=== PATIENT | female | born 1940 | race Asian ===

== ENCOUNTER 2023-09-13 12:03 | Emergency (ER) | payer MEDICARE, SELFPAY ==
[2023-09-13 12:16] VITALS: BP 169/100
[2023-09-13 12:21] VITALS: BMI 34.9
--- NOTE | 2023-09-13 14:31 | ED.GENMED ---
History of Present Illness
General
Chief Complaint: Fall
Source: patient
Exam Limitations: none
Time Seen by Provider: 09/13/23 12:34
Nursing documentation reviewed up to this point in time: agreed with
Travel History
Have you had any contact with someone who has COVID-19?: No
Do you have any symptoms of coronavirus? Fever > 100 degrees, chills, cough, shortness of breath, sore throat, loss of taste or smell, muscle aches, or headache?: No
History of Present Illness
History of Present Illness:
PT IS A 83 Y/O F
h/o afib on eliquis
fall from standing when she tripped over a floor board that was sticking up at home from the floor
she landed onto left shoulder and hit left face
has pain in the left shoulder and is unable to move it. also some mild left cheek/facial bruising
no dizziness/presyncope, snigifincant headache
has some mild left neck pain, left upper arm and left forearm pain
no hip/pelvis pain, cp, sob.
Past History
Past History
ED Past Medical History: Arrthythmia, HTN and Hypercholesterolemia
Social History
Tobacco: Non-smoker
Alcohol: None
Drug: None
Personal: Single
Living: alone
Review of Systems
Review of Systems
Allergies reviewed?: Yes
All Other Systems: Not applicable
Phy Exam
Physical Exam
Physical Exam:
GENERAL: Alert , in pain L shoulder
head: ncat
face: left maxillary/zygoma region ecchymosis and STS
EYE: pupils equal and reactive
NECK: Supple, mild left trap tenderness, painful lateral rotation
ENT: b/l TM s clear
CARDIAC: Regular rate and rhythm, no edema
LUNGS: Clear breath sounds bilaterally, no acute respiratory distress, no wheezes/rales/rhonchi, occ cough
ABDOMEN: Soft, without focal tenderness, no r/g, no cvat, normal bowel sounds
hips notnender
back nontender midline
NEUROLOGICAL: Alert and oriented, no focal neuro deficits, cn intact, strength intact, sensation intact
SKIN: Warm and dry, skin intact. ecchymosis left cheek
MUSCULOSKELETAL: left shoulder tender
very limited ROM
tender humerus, forearm but no signs of trauma
wrist/hand normal
PSYCH: Normal and appropriate interaction.
Course
Orders/Labs/Results
Orders:
Orders
09/13/23 13:16
CT Cervical Spine W/o Iv Contr Urgent
Comment:
Reason For Exam: fall, hit head, left neck kpain
CT Facial Bones W/o Iv Contras Urgent
Comment:
Reason For Exam: fall hit left face
CT Head W/o Iv Contrast Urgent
Comment:
Reason For Exam: fall on thinners
Hydrocodone 5/APAP 325 [[place] 5/325] 1 tablet PO NOW STA
Ondansetron Orally Disint [Zofran Odt (Orally Disintegrating)] 4 mg PO NOW STA
CR Shoulder, Trauma - Left Urgent
Comment:
Reason For Exam: left shoulder injury from fall
Forearm, Left 2 View [CR Forearm - Left 2 View] Urgent
Comment:
Reason For Exam: left arm pain
Humerus, Left 2 Views [CR Humerus - Left Min 2 Views*] Urgent
Comment:
Reason For Exam: left arm pain after fall
09/13/23 15:17
Case Management Consult ONCE
Case Management Consult: VN/Home Care
Vital Signs
Initial and Last Documented VS:
Initial Vital Signs
Temp Pulse Resp BP Pulse Ox
97.4 F 62 20 169/100 98
09/13/23 12:16 09/13/23 12:16 09/13/23 12:16 09/13/23 12:16 09/13/23 12:16
Last Documented Vital Signs
Temp Pulse Resp BP Pulse Ox
97.4 F 78 16 141/90 95
09/13/23 12:16 09/13/23 16:23 09/13/23 16:23 09/13/23 16:23 09/13/23 16:23
MDM/Problems Addressed
Differential Diagnosis Includes:
shoulder fracture, dislocation, head injury
MDM/Problems Addressed:
pt is a 83 y/o F with h/o right hand domiannce
here with L shoulder pain after mechanical fall onto left shoulder
unable to range it
also struck face
is on eliquis
mentating normally
mild facial bruising
L shoulder limited ROM suspect that she has a fracture
nv intact
no other signifiant injuries
due to age and mechanism, ct face and c s pine recommended
CTs neg for fractures
xray reviewed by me
left humeral head fracture, appeared subluxed but reviewed with radiologist read and no dislocation/malalignment
i also spoke with ortho attending dr monsalve who agreed
he recommended sling and outpatient f/u
pt was given dose of vicodin as she was in a lot of pain
she seemed to tolerate well
daughter says she will take her mom home to stay with her so she will do tylenol 2 times a day and 1 dose vicodin before bed
she is aware this can make her drowsy.
humerus and forearm no fractures indep reviewed xrays.
*Critical Care Note
Total Time (30-74mins, 75-104mins- exclusive of procedures): Not Applicable
ED Attending Note
-
Portions of this chart may have been created with voice recognition software.� Occasional wrong word or��sound alike� substitutions may have occurred due to the inherent limitations of voice recognition software.
Discharge Plan
Departure
Patient Disposition: Home (Routine Discharge)
Date of Disposition: 09/13/23
Time of Disposition: 15:57
Patient with high blood pressure during this ER visit?: No
Covid-19: Not Applicable
Discharge Problem:
Closed fracture of shoulder, Fall, Contusion of face
Instructions: Contusion (DC), Shoulder Fracture (DC), BLOOD PRESSURE
Prescriptions:
New
hydrocodone-acetaminophen 5-325 mg tablet
1 tab PO BID PRN (Reason: Pain) Qty: 9 0RF
Referrals:
Coy Monsalve MD [Active] - Follow up in 5-7 days (call for an appointment)
UNKNOWN - PT DOES,NOT KNOW [Family Provider] -
Activity Restrictions/Additional Instructions:
YOU HAVE A BROKEN SHOULDER
WEAR THE SLING
YOU SHOULD SEE AN ORTHOPEDIST BY NEXT WEEK
CALL FOR AN APPOINTMENT. YOU CAN FOLLOW UP HERE WITH [facility] OR CALL ANOTHER ORTHOPEDIC PRACTICE [facility]
ICE OFF AND ON
TYLENOL 2 TIMES A DAY 650 MG (morning and afternoon)
IF YOUR PAIN IS SEVERE YOU CAN TRY A HYDROCODONE/TYLENOL TAB NEEDED EVERY 12 HOURS ([facility]
THIS MAY MAKE YOU SLEPEY OR DIZZY
BE CAREFUL BECAUSE OF YOUR BLOOD THINNERS, IF IT MAKES YOU TOO DIZZY THEN DO NOT TAKE IT
YOU HAD NO SIGNS OF HEAD/FACE/SPINE INJURY FROM THE FALL BUT SOME BRUISING TO YOUR FACE WHICH SHOULD HEAL
RETURN FOR ANY SEVERE PAIN, OR ANY CONCERNS.
Interventions
Interventions:
*Risk Screen - Suicide Last Done: 09/13/23 12:11
*General Assessment Last Done: 09/13/23 14:42
*Neglect/Abuse Screening Last Done: 09/13/23 12:11
ED- Fall Risk Assessment Last Done: 09/13/23 12:12
*ED COVID-19 Vaccine History Last Done: 09/13/23 16:31
*Nursing Disposition Last Done: 09/13/23 16:31
ED-Musculoskeletal Assessment Last Done: 09/13/23 14:40
ED- Neurological Assessment Last Done: 09/13/23 15:05
ED-Skin Assessment Last Done: 09/13/23 14:42
Discharge Date and Time
Discharge Date/Time: 09/13/23 16:35
[2023-09-13] MEDS: ZOFRAN ODT (ORALLY DISINTEGRATING) 4 MG PO (14:36)
[2023-09-13] MEDS: NORCO 5/325 1 TABLET PO (14:37)
--- NOTE | 2023-09-13 15:41 | CM ---
Addendum entered by Carmina Villalobos RN 09/13/23 16:02:
[facility] has accepted.
Original Note:
Cm met with patient and daughter in room. Patient lives alone. Daughter is available for cooking and minor housekeeping. Patient is agreeable to stay with daughter with [facility]. CM gave patient's daughter number for TO Dias[facility] rn liaison at
[facility] to arrangement for private pay care.
TAMARA sent referral via [facility] to [facility].
CM updated ED PA.
[2023-09-13 16:23] VITALS: BP 141/90
== END 2023-09-13 16:35 | disposition home or self-care (01) ==
LOC: EMR 12:03
PROVIDERS: EMERGENCY PHYSICIAN Emergency Medicine
DX: S42.92XA Fracture of left shoulder girdle, part unspecified, initial encounter for closed fracture (principal); S00.83XA Contusion of other part of head, initial encounter; M79.632 Pain in left forearm; M54.2 Cervicalgia; M79.622 Pain in left upper arm; W18.09XA Striking against other object with subsequent fall, initial encounter; Y92.009 Unspecified place in unspecified non-institutional (private) residence as the place of occurrence of the external cause; I10 Essential (primary) hypertension; E78.00 Pure hypercholesterolemia, unspecified; I48.91 Unspecified atrial fibrillation; Z79.01 Long term (current) use of anticoagulants; Z88.6 Allergy status to analgesic agent
CPT/HCPCS: 99284; 70450; 70486; 72125; 73030; 73060; 73090

== ENCOUNTER → 2024-08-30 12:52 | Outpatient (REF) | payer MEDICARE, SELFPAY | LOC: HWRAD 12:52 | PROVIDERS: ATTENDING PHYSICIAN Nurse Practitioner | DX: R05.3 Chronic cough (principal) | CPT/HCPCS: 71046 ==

== ENCOUNTER 2025-02-18 14:25 | Outpatient (RCR) | payer MEDICARE, SELFPAY | END 2025-02-18 23:59 | disposition home or self-care (01) | LOC: RPT 14:25 | PROVIDERS: ATTENDING PHYSICIAN Anesthesiology; FAMILY PHYSICIAN Family Medicine | DX: M54.51 Vertebrogenic low back pain (principal); Z73.6 Limitation of activities due to disability; M79.605 Pain in left leg; M79.604 Pain in right leg; M62.81 Muscle weakness (generalized) | CPT/HCPCS: 97010; 97112; 97116; 97162 ==

== ENCOUNTER 2025-03-18 19:01 | Outpatient (RCR) | payer MEDICARE, SELFPAY | END 2025-03-18 23:59 | disposition home or self-care (01) | LOC: RPT 19:01 | PROVIDERS: ATTENDING PHYSICIAN Anesthesiology; FAMILY PHYSICIAN Family Medicine | DX: M54.51 Vertebrogenic low back pain (principal); Z73.6 Limitation of activities due to disability; M79.605 Pain in left leg; M79.604 Pain in right leg; M62.81 Muscle weakness (generalized) | CPT/HCPCS: 97010; 97112 ==

== ENCOUNTER 2025-04-15 17:14 | Outpatient (RCR) | payer MEDICARE, SELFPAY | END 2025-04-15 23:59 | disposition home or self-care (01) | LOC: RPT 17:14 | PROVIDERS: ATTENDING PHYSICIAN Anesthesiology; FAMILY PHYSICIAN Family Medicine | DX: M54.51 Vertebrogenic low back pain (principal); Z73.6 Limitation of activities due to disability; M79.605 Pain in left leg; M79.604 Pain in right leg; M62.81 Muscle weakness (generalized) | CPT/HCPCS: 97010; 97112 ==

== ENCOUNTER 2025-05-20 18:57 | Outpatient (RCR) | payer MEDICARE, SELFPAY | END 2025-05-20 23:59 | disposition home or self-care (01) | LOC: RPT 18:57 | PROVIDERS: ATTENDING PHYSICIAN Anesthesiology; FAMILY PHYSICIAN Family Medicine | DX: M54.51 Vertebrogenic low back pain (principal); M79.605 Pain in left leg; M79.604 Pain in right leg; M62.81 Muscle weakness (generalized); Z73.6 Limitation of activities due to disability | CPT/HCPCS: 97010; 97112 ==

== ENCOUNTER 2025-06-17 09:39 | Outpatient (RCR) | payer MEDICARE, SELFPAY | END 2025-06-17 23:59 | disposition home or self-care (01) | LOC: RPT 09:39 | PROVIDERS: ATTENDING PHYSICIAN Anesthesiology; FAMILY PHYSICIAN Family Medicine | DX: M54.51 Vertebrogenic low back pain (principal); Z73.6 Limitation of activities due to disability; M79.605 Pain in left leg; M79.604 Pain in right leg; M62.81 Muscle weakness (generalized) | CPT/HCPCS: 97010; 97112 ==

== ENCOUNTER 2025-06-18 06:37 | Outpatient (RCR) | payer MEDICARE, SELFPAY | END 2025-06-18 23:59 | disposition home or self-care (01) | LOC: RPT 06:37 | PROVIDERS: FAMILY PHYSICIAN Nurse Practitioner | DX: R32 Unspecified urinary incontinence (principal); Z73.6 Limitation of activities due to disability; M62.81 Muscle weakness (generalized) | CPT/HCPCS: 97161; 97530 ==

== ENCOUNTER 2025-07-15 14:14 | Outpatient (RCR) | payer MEDICARE, SELFPAY | END 2025-07-16 07:20 | disposition home or self-care (01) | LOC: RPT 14:14 | PROVIDERS: ATTENDING PHYSICIAN Anesthesiology; FAMILY PHYSICIAN Family Medicine | DX: M54.51 Vertebrogenic low back pain (principal); Z73.6 Limitation of activities due to disability; M79.605 Pain in left leg; M79.604 Pain in right leg; M62.81 Muscle weakness (generalized) | CPT/HCPCS: 97010; 97112 ==